=== PATIENT | male | born 1980 | race African-American/Black ===

== ENCOUNTER 2025-03-05 10:24 | Emergency (ER) | payer OTHER, SELFPAY ==
[2025-03-05 10:26] VITALS: BP 147/96
[2025-03-05 11:14] VITALS: BMI 39.8
--- NOTE | 2025-03-05 11:34 | ED.GENMED ---
Addendum entered and electronically signed by Edith Cochran MD 03/05/25 13:47:
I irrigated patient's eye multiple times with eyewash. I did not see any foreign body on the patient's eye surface.
Critical care of 43 minutes given to patient including frequent reassessments of pain, discussing the case multiple times with the [facility] eye transfer center as well as the [facility] eye resident, as well as multiple examinations of the patient's eye
Addendum entered and electronically signed by Edith Cochran MD 03/05/25 13:38:
Ophthalmology resident at [facility] recommended IV Ancef as well as IV Levaquin. We will place a hard shield on the patient's right eye.
Additionally, the ophthalmology resident recommended that the patient take an ambulance there. Patient adamantly does not want to. I explained to the patient that this can interfere with his vision and cause long-term vision loss, but patient
adamantly does not want to take an ambulance due to cost. Patient understands this risk. Patient states that his cousin will take him directly to [facility] emergency department. Patient will be given disk of CAT scan as well as CAT scan
report.
Original Note:
History of Present Illness
General
Chief Complaint: Eye Problems
Source: patient
Exam Limitations: none
Time Seen by Provider: 03/05/25 10:46
Nursing documentation reviewed up to this point in time: agreed with
History of Present Illness
History of Present Illness:
The patient is a pleasant 44-year-old male who reports he was rolling a wooden log on the ground and somehow, a piece of metal from the ground hit him in the right eye. Patient reports severe pain and tearing of the right eye. He denies any other
injury. Patient presents with a right upper eyelid laceration. Patient has a sensation that something is stuck in his eye as well. Patient is not a contact wearer.
Past History
Past History
ED Past Medical History: HTN
ED Past Surgical History: Orthopedic
Social History
Tobacco: Other
Drug: None
Personal: Other
Living: with family
Employment: Employed
Family History
Family History: Other
Review of Systems
Review of Systems
Allergies reviewed?: Yes
All Other Systems: ROS reviewed and negative except as documented in HPI and ROS
Constitutional: Reports no symptoms
EENT: Reports tearing and other
Respiratory: Reports no symptoms
Cardiac: Reports no symptoms
ABD/GI: Reports no symptoms
: Reports no symptoms
Musculoskeletal: Reports no symptoms
Skin: Reports other (Upper eyelid laceration)
Neurological: Reports no symptoms
Endocrine: Reports no symptoms
Hematologic/Lymphatic: Reports no symptoms
Psychiatric: Reports no symptoms
Phy Exam
Physical Exam
Physical Exam:
Physical Exam
General: Patient is fully awake, alert. Atraumatic appearing head. Tearing of right eye
Neck: supple. no meningeal signs. normal psoterior pharynx. Extraocular muscles intact. Injected right conjunctiva. Tearing of right eye. PERRL bilaterally. No visible foreign body seen in globe on superficial
inspection. When using fluorescein dye, no uptake to suggest laceration or abrasion. Three-quarter centimeter vertically aligned mid upper eyelid laceration through eyelash line.
Heart: s1/s2 regular rate and rhythm,
Lungs: Breathing comfortably
Abdomen: Soft, nontender
Neuro: alert and oriented. no focal neurological deficits
Skin: no rash
Psychiatric: well kept. interactive and cooperative
Extremities: no edema. Nontender upper and lower extremities
Course
Orders/Labs/Results
Orders:
Orders
03/05/25 11:56
CT Orbits W/o Iv Contrast Urgent
Comment:
Reason For Exam: right eye injury
Vital Signs
Initial and Last Documented VS:
Initial Vital Signs
Temp Pulse Resp BP Pulse Ox
97.7 F 76 16 147/96 98
03/05/25 10:26 03/05/25 10:03/05/25 10:03/05/25 10:03/05/25 10:26
Last Documented Vital Signs
Temp Pulse Resp BP Pulse Ox
97.7 F 76 16 147/96 98
03/05/25 10:26 03/05/25 10:26 03/05/25 10:03/05/25 10:03/05/25 11:34
MDM/Problems Addressed
Differential Diagnosis Includes:
Foreign body in right globe, right eye lid laceration, right globe abrasion
MDM/Problems Addressed:
Patient presents with acute eye pain and tearing after getting hit by metal
Chronic conditions affecting care: HTN
Acute Exacerbation and/or Progression of Chronic Illness:
Patient is acutely hypertensive, however, patient is in some discomfort and is anxious
Acute Exacerbation and/or Progression of Chronic Illness: HTN
*Pulse Oximetry
SaO2: 98
Oxygen Mode of Delivery: Room air
Patient hypoxic: no
Comment: Patient is 98% on room air
*EKG
Interpreted by ED Provider?: NA
*Shipper Receiver Interpretation
Rate: Shipper Receiver- N/A
*Critical Care Note
Total Time (30-74mins, 75-104mins- exclusive of procedures): Not Applicable
Data Reviewed
Source: patient
Patient Management
Social determinants of health affecting care: Living situation and Strong social support
Discussion with other providers: Other (Discussed case with Dr. Chester Vega and ophthalmology on-call, Dr Luu, who recommends transfer to [facility])
Escalation/DeEscalation of care consider admission/obs:
Spoke to resident utility pipe layer at [facility] eye emergency department who recommended CT orbits of eye, as well as eye pressures
Update Note
Update Note:
Visual acuity:
Right-20/25 left-20/50
Pressures:
Right-19, left-17
ED Attending Note
-
Portions of this chart may have been created with voice recognition software.� Occasional wrong word or��sound alike� substitutions may have occurred due to the inherent limitations of voice recognition software.
Discharge Plan
Departure
Referrals:
Jai Jackson MD [Family Provider, General]
Interventions
Interventions:
*Risk Screen - Suicide Last Done: 03/05/25 10:26
*Neglect/Abuse Screening Last Done: 03/05/25 10:26
*ED- Fall Risk Assessment Last Done: 03/05/25 11:15
*ED COVID-19 Vaccine History Last Done: 03/05/25 11:15
Discharge Date and Time
Print Language: MONTENEGRIN
[2025-03-05] MEDS: LEVAQUIN 100 IV (13:32)
[2025-03-05] MEDS: TETRACAINE 0.5% OPHTHALMIC SOLUTION 2 DROP OPHTH (13:32)
[2025-03-05] MEDS: DACRIOSE EYE WASH SOLUTION 118 ML OPHTH (13:35)
[2025-03-05] MEDS: ANCEF 5 IV (14:27)
[2025-03-05 15:00] VITALS: BP 137/90
--- NOTE | 2025-03-05 15:05 | EDRN ---
REviewed discharge instructions with patient. Verbalized understanding. Ambulated with steady gait to the lobby.
[2025-03-05 15:10] VITALS: BP 137/90
== END 2025-03-05 15:05 | disposition short-term general hospital (02) ==
LOC: EMR 10:24
PROVIDERS: EMERGENCY PHYSICIAN Emergency Medicine; FAMILY PHYSICIAN Family Medicine
DX: T15.81XA Foreign body in other and multiple parts of external eye, right eye, initial encounter (principal); S01.111A Laceration without foreign body of right eyelid and periocular area, initial encounter; W44.8XXA Other foreign body entering into or through a natural orifice, initial encounter; W22.8XXA Striking against or struck by other objects, initial encounter; Y93.89 Activity, other specified; I10 Essential (primary) hypertension
CPT/HCPCS: 99291; 96365; 96375; 70480